=== PATIENT | female | born 1935 | race Caucasian/White ===

== ENCOUNTER → 2016-05-10 | Outpatient (CLI) | payer MEDICARE | LOC: MRI 05-06 09:00 | DX: M48.06 Spinal stenosis, lumbar region (principal); M54.5 Low back pain; M54.16 Radiculopathy, lumbar region; M43.06 Spondylolysis, lumbar region; M51.36 Other intervertebral disc degeneration, lumbar region; M99.72 Connective tissue and disc stenosis of intervertebral foramina of thoracic region | CPT/HCPCS: 72148 ==

== ENCOUNTER 2020-11-24 04:24 | Emergency (ER) | payer MEDICARE ==
[~2020-11-24 04:24] MED LIST: ZOFRAN4 MG PO
== END 2020-11-24 07:30 | disposition home or self-care (01) ==
LOC: ER1 04:24
DX: G30.9 Alzheimer's disease, unspecified (principal); F02.80 Dementia in other diseases classified elsewhere, unspecified severity, without behavioral disturbance, psychotic disturbance, mood disturbance, and anxiety; I10 Essential (primary) hypertension; Z88.0 Allergy status to penicillin
CPT/HCPCS: 81001; 87077; 87086; 87186; 99285

== ENCOUNTER 2020-11-29 22:14 | Observation (INO) | payer MEDICARE ==
[~2020-11-29] VITALS: Ht 167.6 cm; Wt 79.8 kg
[2020-11-29 23:07] LABS: HEMOGLOBIN 13.9 gm/dl (12.3-15.3); RED BLOOD COUNT 4.31 M/UL (4.00-5.10); WHITE BLOOD COUNT 10.4 K/UL (4.5-11.0)
[2020-11-29 23:42] LABS: BUN/CREATININE RATIO 18 (0-10)
[2020-11-30] MEDS ORDERED: TRAZODONE HCL100 MG PO (03:25)
[2020-11-30] MEDS ORDERED: LIPITOR TAB 1010 MG PO (03:26)
[2020-11-30] MEDS ORDERED: ARICEPT10 MG PO (03:26)
[2020-11-30] MEDS ORDERED: GLUCOPHAGE 500500 MG PO (03:27)
[2020-11-30] MEDS ORDERED: LOPRESSOR 25 MG25 MG PO (03:27)
[2020-11-30] MEDS ORDERED: MACROBID 100 M100 MG PO (03:28)
[2020-12-01 07:29] LABS: HEMOGLOBIN 15.7 gm/dl (12.3-15.3); WHITE BLOOD COUNT 8.6 K/UL (4.5-11.0)
[2020-12-01 07:31] LABS: RED BLOOD COUNT 4.97 M/UL (4.00-5.10)
[2020-12-01] MEDS ORDERED: ROCEPHIN 1 GM AD1 GM IM (13:53)
[2020-12-01] MEDS ORDERED: LOPRESSOR 25 MG25 MG PO (18:20)
[2020-12-01 19:02] LABS: BUN/CREATININE RATIO 21 (0-10)
== END 2020-12-01 21:43 | disposition home health service (06) ==
LOC: ER1 22:14 → M/S 11-30 01:05 → CDU 11-30 01:05 → M/S 11-30 03:13
PROVIDERS: Family Medicine; Internal Medicine; ADMIT Internal Medicine
DX: N39.0 Urinary tract infection, site not specified (principal); G93.40 Encephalopathy, unspecified; R29.6 Repeated falls; R00.0 Tachycardia, unspecified; E87.6 Hypokalemia; G30.9 Alzheimer's disease, unspecified; F02.80 Dementia in other diseases classified elsewhere, unspecified severity, without behavioral disturbance, psychotic disturbance, mood disturbance, and anxiety; G89.29 Other chronic pain; M19.90 Unspecified osteoarthritis, unspecified site; M54.9 Dorsalgia, unspecified; E04.8 Other specified nontoxic goiter; Z20.822 Contact with and (suspected) exposure to COVID-19; Z88.0 Allergy status to penicillin; Z88.5 Allergy status to narcotic agent; Z79.84 Long term (current) use of oral hypoglycemic drugs; Z79.899 Other long term (current) drug therapy
CPT/HCPCS: 36415; 51701; 70450; 71045; 76536; 80048; 80053; 81001; 82140; 82550; 82553; 82607; 82746; 83605; 83735; 83874; 84100; 84439; 84443; 84484; 84550; 85025; 86140; 87040; 87077; 87086; 87186; 93005; 96365; 96372; 96375; 96376; 97162; 97530-GP-CQ; 99285; G0378; J0360; J0696; J1650; J3475; J3480; U0002

== ENCOUNTER 2020-12-06 15:06 | Observation (INO) | payer MEDICARE ==
[~2020-12-06] VITALS: Ht 162.6 cm; Wt 76.7 kg
[~2020-12-06 15:06] MED LIST changes: +ARICEPT10 MG PO; +GLUCOPHAGE 500500 MG PO; +LIPITOR TAB 1010 MG PO; +LOPRESSOR 25 MG25 MG PO; +MACROBID 100 M100 MG PO; +ROCEPHIN 1 GM AD1 GM IM; +TRAZODONE HCL100 MG PO
[2020-12-06 16:00] LABS: HEMOGLOBIN 14.3 gm/dl (12.3-15.3); RED BLOOD COUNT 4.48 M/UL (4.00-5.10); WHITE BLOOD COUNT 8.1 K/UL (4.5-11.0)
[2020-12-06 16:22] LABS: BUN/CREATININE RATIO 21 (0-10)
[2020-12-07] MEDS ORDERED: TRAZODONE HCL100 MG PO (15:31)
[2020-12-11 04:13] LABS: RED BLOOD COUNT 4.46 M/UL (4.00-5.10); WHITE BLOOD COUNT 9.9 K/UL (4.5-11.0)
[2020-12-11 04:35] LABS: BUN/CREATININE RATIO 16 (0-10)
[2020-12-12 06:52] LABS: HEMOGLOBIN 13.7 gm/dl (12.3-15.3); RED BLOOD COUNT 4.43 M/UL (4.00-5.10); WHITE BLOOD COUNT 7.5 K/UL (4.5-11.0)
[2020-12-13 02:32] LABS: HEMOGLOBIN 12.4 gm/dl (12.3-15.3); RED BLOOD COUNT 4.02 M/UL (4.00-5.10); WHITE BLOOD COUNT 8.8 K/UL (4.5-11.0)
[2020-12-13] MEDS ORDERED: TYLENOL325 MG PO (09:23)
== END 2020-12-13 18:35 ==
LOC: ER1 15:06 → CDU 17:53 → M/S 17:53
PROVIDERS: Emergency Medicine; Internal Medicine; ADMIT Internal Medicine
DX: G30.9 Alzheimer's disease, unspecified (principal); F02.80 Dementia in other diseases classified elsewhere, unspecified severity, without behavioral disturbance, psychotic disturbance, mood disturbance, and anxiety; N30.00 Acute cystitis without hematuria; G93.40 Encephalopathy, unspecified; G89.29 Other chronic pain; M54.9 Dorsalgia, unspecified; E06.9 Thyroiditis, unspecified; E11.9 Type 2 diabetes mellitus without complications; M19.90 Unspecified osteoarthritis, unspecified site; M25.551 Pain in right hip; E78.5 Hyperlipidemia, unspecified; Z20.822 Contact with and (suspected) exposure to COVID-19; R94.31 Abnormal electrocardiogram [ECG] [EKG]
CPT/HCPCS: 36415; 51701; 71045; 73502; 80048; 80053; 81001; 83735; 84439; 84443; 84484; 85025; 85027; 86140; 87086; 93005; 97110; 97162; 97167; 97530; 97530-GP-CQ; 97535; 99285; G0378; J1650; U0002